=== PATIENT | male | born 1960 | race Caucasian/White ===

== ENCOUNTER 2018-12-14 08:05 | Inpatient (IN) ==
[2018-12-08 09:33] LABS: Basophils # (Auto) 0 K/mcL (0.0-0.3); Basophils % (Auto) 0.2 % (0.0-2.0); Eosinophils # (Auto) 0.5 K/mcL (0.0-0.7); Eosinophils % (Auto) 8.6 % (0.0-7.0); Granulocytes % (Auto) 66.2 % (38.0-78.0); Lymphocytes % (Auto) 17.3 % (15.5-49.0); Mean Cell Volume 94.7 fL (80.0-100.0); Mean Corpuscular HGB Conc 33.2 g/dL (31.0-36.0); Monocytes # (Auto) 0.5 K/mcL (0.1-0.9); Monocytes % (Auto) 7.7 % (1.0-12.0); Platelet Count 229 K/mcL (140-440); RBC 4.89 M/mcL (4.50-5.90); Red Cell Distribution Width 13.6 % (11.5-14.5)
[2018-12-08 09:50] LABS: Blood Urea Nitrogen 18 mg/dl (6-20)
[2018-12-08 11:24] LABS: Estimated Average Glucose(eAG) 105 mg/dL; Hemoglobin A1C 5.3 % HGB (4.0-6.0)
[2018-12-08 12:14] LABS: Appearance,Urine CLEAR; Bilirubin,Urine NEG (NEG); Color,Urine STRAW; Glucose,Urine (UA) NEGATIVE (NEG); Leukocyte Esterase,Urine NEG /uL (NEG); Protein,Urine NEG (NEG); Specific Gravity,Urine 1.008 (1.000-1.035); Urine Blood NEG mg/dL (<0.03); Urobilinogen,Urine NEG (NEG)
[~2018-12-14 08:05] MED LIST: CELECOXIB 200 MG CAPSULE PO SCH; HEPARIN 20,000 UNIT/ML VIAL IR ONE; PREGABALIN 75 MG CAPSULE PO SCH; ceFAZolin 1 GM VIAL IV SCH; oxyCODONE 10 MG TAB.ER.12H PO SCH
[2018-12-14] MEDS ORDERED: PROPOFOL 200 MG/20 ML VIAL IV ONE (09:45)
[2018-12-14] MEDS ORDERED: TRANEXAMIC ACID 1,000 MG/10 ML VIAL IV ONE (09:45)
[2018-12-14] MEDS ORDERED: PHENYLEPHRINE 10 MG/ML VIAL IV ONE (09:45)
[2018-12-14] MEDS ORDERED: ONDANSETRON 4 MG/2 ML VIAL IV ONE (09:45)
[2018-12-14] MEDS ORDERED: MIDAZOLAM 2 MG/2 ML VIAL IV ONE (09:45)
[2018-12-14] MEDS ORDERED: GLYCOPYRROLATE 0.2 MG/ML VIAL IV ONE (09:45)
[2018-12-14] MEDS ORDERED: KETAMINE 100 MG/ML ML IV ONE (09:45)
[2018-12-14] MEDS ORDERED: LIDOCAINE HCL/PF 100 MG/5 ML SYRINGE IV ONE (09:45)
[2018-12-14] MEDS ORDERED: BISACODYL 10 MG SUPP.RECT PR PRN (10:58)
[2018-12-14] MEDS ORDERED: BENZOCAINE/MENTHOL 1 LOZENGE PO PRN (10:58)
[2018-12-14] MEDS ORDERED: POLYETHYLENE GLYCOL 3350 17 GM PACKET PO PRN (10:58)
[2018-12-14] MEDS ORDERED: HYDROmorphone 2 MG/ML VIAL IV PRN (10:58)
[2018-12-14] MEDS ORDERED: FLEETS ADULT ENEMA PR PRN (10:58)
[2018-12-14] MEDS ORDERED: MAGNESIUM HYDROXIDE 30 ML ORAL.SUSP PO PRN (10:58)
[2018-12-14] MEDS ORDERED: TRANEXAMIC ACID 1,000 MG/10 ML VIAL IV SCH (10:58)
[2018-12-14] MEDS ORDERED: KETOROLAC 30 MG/ML VIAL IV PRN (10:58)
--- NOTE | 2018-12-14 10:58 | Brief Operative Note ---
Date of procedure: 12/14/18 Pre-op diagnosis: Left hip DJD Post-op diagnosis: same Procedure: Left anterior total hip arthroplasty Grafts/Implants: Yes (Depuy Actis 8 HO stem, +1.5 36 delta head, 56 cup, neutral altrx liner) Anesthesia: spinal, GLMA Findings: severe arthritis Complications: none Surgeon: José Miguel Baez Locomotive Engineer Diesel: Dickson Hussein Estimated blood loss (cc): 300 Specimens Removed/Pathology: none sent Condition: stable Disposition: PACU
[2018-12-14] MEDS ORDERED: fentaNYL 100 MCG/2 ML VIAL IV PRN (11:01)
[2018-12-14] MEDS ORDERED: MEPERIDINE 25 MG/ML SYRINGE IV PRN (11:01)
[2018-12-14] MEDS ORDERED: METHOCARBAMOL 1,000 MG/10 ML VIAL IV PRN (11:01)
[2018-12-14] MEDS ORDERED: ACETAMINOPHEN 1,000 MG/100 ML BOTTLE IV ONE (11:01)
[2018-12-14] MEDS ORDERED: IPRATROPIUM/ALBUTEROL 3 ML AMPUL.NEB NEB PRN (11:01)
[2018-12-14] MEDS ORDERED: ONDANSETRON 4 MG/2 ML VIAL IV PRN (11:01)
[2018-12-14] MEDS ORDERED: LACTATED RINGERS 1,000 ML IV SCH (11:15)
--- NOTE | 2018-12-14 12:19 | Operative Note ---
DATE OF OPERATION: 12/14/2018 PREOPERATIVE DIAGNOSIS: Left hip severe osteoarthritis. POSTOPERATIVE DIAGNOSIS: Left hip severe osteoarthritis. PROCEDURE PERFORMED: Left anterior total hip arthroplasty placing a DePuy Actis size 8 high offset femoral stem, a +1.5, 36 mm delta ceramic head ball, a 56 [place] cup with a neutral AltrX liner. SURGEON: José Miguel Baez MD HOME AGENT: Hugo Hussein PA-C ANESTHESIA: General. DRAINS: None. SPECIMENS: Femoral head, which was discarded. BLOOD LOSS: 300 mL POSTOPERATIVE CONDITION: Stable. INDICATIONS FOR SURGERY: This is a 58-year-old male who has had longstanding progressive worsening left hip pain. Radiographs showed severe miqu-bn-kgla osteoarthritis. FINDINGS AT SURGERY: As above. Post implantation showed good component position with minimal leg lengthening. PROCEDURE IN DETAIL: The patient had been seen preoperatively and informed consent was obtained after discussion of risks, benefits of surgery. Risks including, but not limited to, bleeding, possibly requiring transfusion; infection, possibly requiring implant removal and prolonged IV antibiotics; injury to nerves, blood vessels, and other surrounding structures; anesthetic risks; incomplete or no resolution of symptoms; leg length discrepancy; dislocation; fracture; DVT and pulmonary embolus risks; and the possibility of needing revision joint surgery. He understood these risks and wished to proceed. Correct operative site was marked and the patient was given spinal anesthesia and taken to the operating room and LMA general given. The patient was carefully positioned on the fracture table and the left hip and groin were carefully prepped and draped in normal sterile fashion and a timeout was performed verifying patient name, operative site, and plan. Ioban was used to cover all skin surfaces and scalpel was used for skin incisions through a standard anterior approach incision. Hemostasis was obtained with Bovie cautery. Careful blunt dissection was taken down on the tensor fascia. He did have multiple branches of the lateral femoral cutaneous nerve that were crossing the fascia. I dissected the largest branch and then had to cut the smaller branch to allow mobilization out of the surgical field. We then irrigated with IrriSept and placed a ring retractor. Tensor fascia was incised in line with the muscle fibers and then careful blunt dissection was taken medial to the muscle belly. Blunt cobra retractors were placed on the superior and inferior neck and then circumflex vessels were coagulated and cut and vastus fascia split distally. Anterior capsulectomy was performed and capsule release was taken out towards the trochanters. Corkscrew was placed in the femoral head and traction was placed on the leg. Osteotome was used under fluoro to identify our neck cut trajectory and then oscillating tip saw was used to make our femoral neck cut. The femoral head was removed and the acetabulum was exposed. Labrum was excised circumferentially as well as soft tissue from the floor. We started medializing with a reamer down to the tear drop. We then increased reamer size and angle until we had rim ream with a 55. We then irrigated with IrriSept, after a minute pulse lavage with saline. A 56 no-hole cup was opened and impacted at approximately 35 degrees of inclination and 30 degrees of anteversion. We had good press-fit. A center hole cover was placed. We used a curved osteotome to remove anterior osteophyte and then a neutral AltrX liner was carefully aligned and impacted. Traction was removed from the leg and it was externally rotated and capsule was released around the medial neck. Leg was then extended and adducted, the traction removed. Box osteotome was used to enter the canal and an awl to identify trajectory. Rongeur and rasp were used to lateralize and then we began sequentially broaching. We went up to a size 8. We had minimal calcar planing necessary. We then trialled with a standard offset neck. We reduced the hip. There was not a great deal of tension. AP pelvis was taken to verify neutral rotation and AP of the nonoperative and operative hips were overlaid. Our leg length was equal but our offset was under offset with the operative side, so we went ahead and redislocated. We opened the 8 high offset stem. We removed the trial, irrigated the femoral canal with IrriSept, after a minute copiously pulse lavaged with saline. We then impacted the stem which seated fully on the neck cut. We opened a +1.5, 36 head ball. The stem was carefully cleaned and dried and the head ball briskly impacted. We then reduced the hip, this time with better tension. Final fluoro images were brought in, taken and saved. We then irrigated with IrriSept, after a minute pulse lavaged with saline, #1 Vicryl running stitches-two of them were used to close tensor fascia. Ring retractor was removed. We irrigated with IrriSept again, after a minute pulse lavaged. Fat was tacked to fascia with Vicryl and 2-0 Monocryl for subcutaneous and jorge for skin. Xeroform and sterile dressing were applied. The patient was then awakened, extubated, and transferred to recovery in stable condition. [id number]:isela Job ID: [id number] Doc ID: [id number] José Miguel Baez MD
[2018-12-14] MEDS: 0.9 % SODIUM CHLORIDE 1,000 ML IV SCH ×3 (12:31→20:29)
[2018-12-14] MEDS: 0.9 % SODIUM CHLORIDE 10 ML SYRINGE IV SCH ×2 (12:32→20:33)
--- NOTE | 2018-12-14 12:39 | XRay Report ---
HISTORY: Postop left hip replacement FINDINGS: There is a well-positioned left total hip prosthesis. No fracture is present and there are no abnormal soft tissue calcifications around the joint. Moderate arthritis is present in the right hip with narrowing of the joint compartment along the superior border and formation of small spurs. There is also degenerative disc disease and arthritis in the lower lumbar spine. IMPRESSION: Well-positioned left hip prosthesis Interpreted and Authenticated by: Ovidio Castillo 12/14/18
[2018-12-14] MEDS: ONDANSETRON 4 MG/2 ML VIAL IV PRN (16:41)
[2018-12-14] MEDS: ceFAZolin 1 GM VIAL IV SCH (16:41)
[2018-12-14] MEDS: HYDROcodone/APAP 10/325MG TABLET PO PRN ×2 (19:53→22:45)
[2018-12-14] MEDS: ASPIRIN 325 MG ENTERIC COATED TABLET PO SCH (20:30)
[2018-12-14] MEDS: DOCUSATE SODIUM 100 MG CAPSULE PO SCH ×2 (20:32→20:39)
[2018-12-14] MEDS: SENNOSIDES 1 TABLET PO SCH ×2 (20:32→20:39)
[2018-12-14] MEDS ORDERED: SODIUM CHLORIDE NASAL 1 SPRAY BOTTLE NAS SCH (21:00)
[2018-12-14] MEDS ORDERED: ZOLPIDEM 5 MG TABLET PO PRN (21:00)
[2018-12-15] MEDS: ceFAZolin 1 GM VIAL IV SCH (02:08)
[2018-12-15] MEDS: HYDROcodone/APAP 10/325MG TABLET PO PRN ×4 (02:20→15:04)
[2018-12-15] MEDS: 0.9 % SODIUM CHLORIDE 1,000 ML IV SCH (04:56)
[2018-12-15] MEDS: 0.9 % SODIUM CHLORIDE 10 ML SYRINGE IV SCH (04:58)
[2018-12-15] MEDS ORDERED: 0.9 % SODIUM CHLORIDE 1,000 ML IV ONE (07:45)
[2018-12-15] MEDS: ONDANSETRON 4 MG/2 ML VIAL IV PRN (08:07)
--- NOTE | 2018-12-15 08:12 | Discharge Summary ---
Providers - Providers Patient information: Note initiated : 12/15/18 at 8:10 am Service Date, if different from initiated Date: [] Patient: Ovidio Godoy 58 y/o M admitted on 12/14/18 for Left Total Hip ARthroplasty . Chief Complaint: [] Discharge date: 12/15/18 Hospitalization Hospital course: Pt was admitted for a LILLIE. Pt underwent the procedure on the day of admission. Py spent one night on the floor prior to discharge for IV pain meds, IV abx, and PT. Pt will take ASA for DVT prophylaxis. Will f/u at [facility] in 2 weeks. Will call [facility] with questions or concerns. Will present to the ED for emergent problems. Discharge diagnosis: L hip OA Exam - Exam Clean and dry: Yes Weight bearing status: as tolerated Ortho Discharge - LILLIE - Patient Instructions Diet: Regular Diet Activity: activity as tolerated Total Hip Protocol: Follow activity instructions as provided by Physical Therapy. Dressing Care: May shower in 2 days - Follow Up Plan Follow Up Appointments: Dickson Hussein PA-C [Physician Identity Management Consultant] - 12/29/18 10:40 am Disposition: Home, Self-Care Prognosis: Good Rehab Potential: Good Overall status at discharge: patient is progressing back to baseline - Orders For Discharge Prescriptions: Aspirin [Ecotrin] 325 mg PO BID #60 tab.ec HYDROcodone/APAP 10/325MG [[place] 10-325Mg] 1 - 2 tab PO Q4HP PRN #75 tablet PRN Reason: Pain Level 3-6 Pending Studies Resuscitation Status Full Code Diet Regular Diet Start WedDec 14 1099 Hydrocodone Bitart/Acetaminophen ([place] 10/325mg) 0 tab PO Q4HP PRN PRN Reason: PAIN LEVEL 3-6 Last Admin: 12/15/18 04:57 Dose: 1 tab Documented by: Admin: 12/15/18 02:20 Dose: 1 tab Documented by: Admin: 12/14/18 22:45 Dose: 1 tab Documented by: Admin: 12/14/18 19:53 Dose: 1 tab Documented by: KESHA Aspirin (Ecotrin) 325 mg PO BID [facility] Last Admin: 12/14/18 20:30 Dose: 325 mg Documented by: KESHA Docusate Sodium (Colace) 100 mg PO BID [facility] Last Admin: 12/14/18 20:39 Dose: 100 mg Documented by: KESHA Ondansetron HCl (Zofran) 4 mg IV Q4HP PRN PRN Reason: Nausea And Vomiting Last Admin: 12/15/18 08:07 Dose: 4 mg Documented by: EDNATRIGIrma Admin: 12/14/18 16:41 Dose: 4 mg Documented by: MGARRMARIA L Polyethylene Glycol (Miralax) 17 gm PO DAILYP PRN PRN Reason: Constipation Last Admin: 12/14/18 20:30 Dose: 17 gm Documented by: KESHA Senna (Senokot) 2 tab PO HS [facility] Last Admin: 12/14/18 20:39 Dose: 2 tab Documented by: KESHA Sodium Chloride (Saline Flush) 10 ml IV Q8 [facility] Last Admin: 12/15/18 04:58 Dose: 10 ml Documented by: Admin: 12/14/18 20:33 Dose: Not Given Documented by: Admin: 12/14/18 12:32 Dose: Not Given Documented by: ARRMARIA L Sodium Chloride ([employer] Nasal) 1 spray [facility] Last Admin: 12/14/18 20:32 Dose: 1 spray Documented by: KESHA Zolpidem Tartrate (Ambien) 10 mg PO HSP PRN PRN Reason: Insomnia Last Admin: 12/14/18 22:46 Dose: 10 mg Documented by: KESHA Shift Summary 12/15/18 03:54 Shift Summary by Claritza Begum VSRosa, uses CPAP at [facility]. A&Ox4. Last pain rating 5/10 to L hip, receiving 10-325mg [place] with effective results. Dressing to L hip is C/D/I. Ice to L hip on/off tonight. IV to L FA is running 0.9%NS @ 125ml/hr. Will saline lock. No nausea tonight. Up to the bathroom with SBA, FWW and gait belt. Ambulated in hallway x 1 approx. 400 feet, tolerated well. Initialized on 12/15/18 03:54 - END OF NOTE
[2018-12-15] MEDS: DOCUSATE SODIUM 100 MG CAPSULE PO SCH (08:58)
[2018-12-15] MEDS: ASPIRIN 325 MG ENTERIC COATED TABLET PO SCH (08:58)
[2018-12-15] MEDS ORDERED: MULTIVIT,THER IRON,CA,FA & MIN 1 TABLET PO SCH (09:00)
[2018-12-15] MEDS ORDERED: ASCORBIC ACID 500 MG TABLET PO SCH (09:00)
[2018-12-15] MEDS ORDERED: POLYVINYL ALCOHOL OPHTH DROPS 15ML BOTTLE OU SCH (09:00)
[2018-12-15] MEDS ORDERED: POLYETHYLENE GLYCOL 3350 17 GM PACKET PO SCH (09:00)
--- NOTE | 2019-01-01 06:29 | XRay Report ---
CLINICAL INFORMATION: Left hip replacement TECHNIQUE: 0.3 minutes fluoroscopy utilized by Dr. Baez. Intraoperative spot films obtained during left hip arthroplasty. IMPRESSION: Intraoperative fluoroscopy utilized for left hip arthroplasty Interpreted and Authenticated by: Francisco Todd 01/01/19
== END 2018-12-15 15:16 | disposition home or self-care (01) | DRG 470 ==
LOC: MEDSUR 08:05
PROVIDERS: ADMIT Orthopaedic Surgery; ATTEND Orthopaedic Surgery

== ENCOUNTER 2020-06-12 10:52 | Inpatient (IN) ==
[2020-06-03 17:23] LABS: Appearance,Urine CLEAR; Bilirubin,Urine NEG (NEG); Color,Urine YELLOW; Culture Indicated,Urine NO; Glucose,Urine (UA) NEGATIVE (NEG); Ketones,Urine NEG (NEG); Leukocyte Esterase,Urine NEG /uL (NEG); Nitrate,Urine NEG (NEG); Protein,Urine NEG (NEG); Specific Gravity,Urine 1.013 (1.000-1.035); Urine Blood NEG mg/dL (<0.03); Urobilinogen,Urine NEG (NEG)
[2020-06-03 20:17] LABS: Basophils # (Auto) 0.04 K/mcL (0.00-0.30); Basophils % (Auto) 0.7 % (0.0-2.0); Eosinophils # (Auto) 0.72 K/mcL (0.00-0.70); Eosinophils % (Auto) 13.4 % (0.0-7.0); Granulocytes % (Auto) 57.6 % (38.0-78.0); Hematocrit 45.5 % (40.1-51.0); Hemoglobin 15.1 g/dL (13.7-17.5); Lymphocytes # (Auto) 1.16 K/mcL (1.50-4.80); Lymphocytes % (Auto) 21.6 % (15.5-49.0); Mean Cell Volume 95.4 fL (80.0-100.0); Mean Corpuscular HGB Conc 33.2 g/dL (31.0-36.0); Mean Platelet Volume 9.5 fL (7.4-10.4); Monocytes # (Auto) 0.36 K/mcL (0.10-0.90); Monocytes % (Auto) 6.7 % (1.0-12.0); Platelet Count 212 K/mcL (140-440); RBC 4.77 M/mcL (4.63-6.08); Red Cell Distribution Width 13.3 % (11.5-14.5); WBC 5.4 K/mcL (4.50-11.00)
[2020-06-03 20:24] LABS: Prothrombin Time 13.8 sec (11.9-14.5)
[2020-06-03 20:26] LABS: ALT/SGPT 23 U/l (0-40); AST/SGOT 26 U/l (0-37); Albumin 4.5 gm/dL (3.2-5.2); Albumin/Globulin Ratio 1.6 (1.0-2.3); Alkaline Phosphatase 69 U/L (39-117); Bilirubin,Total 0.5 mg/dL (0.0-1.0); Blood Urea Nitrogen 11 mg/dl (8-23); Calcium 9.5 mg/dl (8.6-10.4); Carbon Dioxide 24 mmol/L (22-30); Chloride 102 mmol/L (96-108); Globulin 2.8 gm/dL (2.2-3.7); Glomerular Filtration Rate 91; Glucose 93 mg/dL (70-105)
[2020-06-03 22:59] LABS: Estimated Average Glucose(eAG) 108 mg/dL; Hemoglobin A1C 5.4 % HGB (4.0-6.0)
[~2020-06-12 10:52] MED LIST changes: +0.9 % SODIUM CHLORIDE 9 ML, KETOROLAC 30 MG, ROPIVACAINE HCL/PF 49.5 ML, EPINEPHrine 0.... IJ SCH; -HEPARIN 20,000 UNIT/ML VIAL IR ONE; +IPRATROPIUM/ALBUTEROL 3 ML AMPUL.NEB NEB PRN; +SCOPOLAMINE 1 PATCH PATCH TOPICAL PRN; -ceFAZolin 1 GM VIAL IV SCH; +ceFAZolin 2 GM in DEXTROSE 5% IN WATER 50 ML IV SCH
[2020-06-12] MEDS ORDERED: LIDOCAINE HCL/PF 100 MG/5 ML SYRINGE IV ONE (13:18)
[2020-06-12] MEDS ORDERED: PROPOFOL 200 MG/20 ML VIAL IV ONE (13:18)
[2020-06-12] MEDS ORDERED: ONDANSETRON 4 MG/2 ML VIAL IV ONE (13:18)
[2020-06-12] MEDS ORDERED: KETAMINE 100 MG/ML ML IV ONE (13:18)
[2020-06-12] MEDS ORDERED: PHENYLEPHRINE 10 MG/ML VIAL IV ONE (13:18)
[2020-06-12] MEDS ORDERED: DEXAMETHASONE 10 MG/ML VIAL IV ONE (13:18)
[2020-06-12] MEDS ORDERED: GLYCOPYRROLATE 0.2 MG/ML VIAL IV ONE (13:18)
--- NOTE | 2020-06-12 14:46 | Brief Operative Note ---
Brief Operative Note Date of procedure: 06/12/20 Pre-op diagnosis: Right hip severe osteoarthritis Post-op diagnosis: same Procedure: Right anterior total hip arthroplasty Grafts/Implants: Yes (Depuy Actis 8 Hi stem, +1.5 36 delta head, 56 cup, neutral altrx liner) Anesthesia: spinal and GLMA Findings: severe arthritis Complications: none Surgeon: José Miguel Baez Web Manager: Dickson Hussein Estimated blood loss (cc): 350 Specimens Removed/Pathology: none sent Condition: stable Disposition: PACU
[2020-06-12] MEDS ORDERED: TRANEXAMIC ACID 1,000 MG/10 ML VIAL IV SCH (14:47)
[2020-06-12] MEDS ORDERED: FLEETS ADULT ENEMA PR PRN (14:47)
[2020-06-12] MEDS ORDERED: POLYETHYLENE GLYCOL 3350 17 GM PACKET PO PRN (14:47)
[2020-06-12] MEDS ORDERED: BISACODYL 10 MG SUPP.RECT PR PRN (14:47)
[2020-06-12] MEDS ORDERED: BENZOCAINE/MENTHOL 1 LOZENGE PO PRN ×2 (14:47→15:14)
[2020-06-12] MEDS ORDERED: HYDROmorphone 1 MG/ML SYRINGE IV PRN (14:47)
[2020-06-12] MEDS ORDERED: MAGNESIUM HYDROXIDE 30 ML ORAL.SUSP PO PRN (14:47)
[2020-06-12] MEDS ORDERED: ACETAMINOPHEN 325 MG TABLET PO PRN (15:09)
[2020-06-12] MEDS ORDERED: fentaNYL 100 MCG/2 ML VIAL IV PRN (15:14)
[2020-06-12] MEDS ORDERED: IPRATROPIUM/ALBUTEROL 3 ML AMPUL.NEB NEB PRN (15:14)
[2020-06-12] MEDS ORDERED: MEPERIDINE 25 MG/ML SYRINGE IV PRN (15:14)
[2020-06-12] MEDS ORDERED: METHOCARBAMOL 1,000 MG/10 ML VIAL IV PRN (15:14)
[2020-06-12] MEDS ORDERED: ONDANSETRON 4 MG/2 ML VIAL IV PRN (15:14)
[2020-06-12] MEDS ORDERED: ACETAMINOPHEN 1,000 MG/100 ML BOTTLE IV ONE (15:14)
[2020-06-12] MEDS ORDERED: LACTATED RINGERS 1,000 ML IV SCH (15:15)
--- NOTE | 2020-06-12 15:19 | XRay Report ---
CLINICAL INFORMATION: RIGHT HIP ARTHROPLASY COMPARISON: None. FINDINGS: Multiple digital images from the OR are submitted. Initial images show severe degeneration of the right hip. Final image shows right total hip prostheses anatomically aligned. No osseous abnormality IMPRESSION: Right total hip prosthesis in anatomic alignment. Interpreted and Authenticated by: Francisco Denton 06/12/20
--- NOTE | 2020-06-12 15:19 | Operative Note ---
DATE OF OPERATION: 06/12/2020 PREOPERATIVE DIAGNOSIS: Right hip severe osteoarthritis. POSTOPERATIVE DIAGNOSIS: Right hip severe osteoarthritis. PROCEDURE PERFORMED: Right anterior total hip arthroplasty placing a DePuy Actis size 8 high offset femoral stem; a +1.5, 36 mm delta ceramic head ball; a 56 [place] cup with a neutral AltrX liner. SURGEON: José Miguel Baez M.D. SIGNAL MAINTAINER HELPER: Hugo Hussein PA-C. The PA's assistance was required for the safe and efficient completion of the entire case. This provider's expertise and technical skill were required throughout the case. The PA assisted with preoperative coordination, intraoperative retraction, wound closure, dressing and splint application, as well as postoperative documentation and care coordination. ANESTHESIA: Spinal plus general. DRAINS: None. SPECIMENS: Femoral head and reamings which were discarded. BLOOD LOSS: 250 mL. COMPLICATIONS: None. POSTOPERATIVE CONDITION: Stable. INDICATIONS FOR SURGERY: This is a 60-year-old male who has had longstanding, progressive worsening, severe right hip pain. Radiographs showed severe lyqd-wv-knzz osteoarthritis. He did have a total hip on the left side done by me several years ago that he was very pleased with. FINDINGS AT SURGERY: There was severe arthritis. Post implantation showed satisfactory component position with relative equalization of leg lengths. PROCEDURE IN DETAIL: The patient had been seen preoperatively. Informed consent obtained after discussion of risks and benefits of surgery. Risks including, but not limited to, bleeding; infection; injury to nerves, blood vessels, and other surrounding structures; anesthetic risks; incomplete or no resolution of symptoms; leg length discrepancy; dislocation; fracture; DVT and pulmonary embolus risks; and the possibility of needing further revision joint surgery. The patient understood these risks and wished to proceed. Correct operative site was marked and then spinal anesthesia given. The patient was then taken to the operating room and LMA general given. The patient was carefully transferred to the fracture table and then the operative hip was carefully prepped and draped in normal sterile fashion. Timeout was performed verifying patient name, operative site, and plan. Ioban was used to cover all skin surfaces. A standard anterior approach incision was made with a scalpel through skin and subcutaneous tissue. Hemostasis was obtained with Bovie cautery. Careful blunt dissection was taken down on the tensor fascia and then this was undermined circumferentially. IrriSept was irrigated and a ring retractor placed. Tensor fascia was incised in line with muscle fibers and then careful blunt dissection taken medial to the muscle belly. Blunt cobra retractors were placed on the superior and inferior femoral neck and then circumflex vessels were coagulated and cut and vastus fascia split distally. Anterior capsulectomy was performed and then the capsule releases. Corkscrew was placed in the femoral head. Prior to placement of the corkscrew we did take x-rays for joint point. Once a corkscrew was placed we used fluoroscopy to identify our approximate neck cut trajectory and then our femoral neck was cut with oscillating tip saw. Femoral head was removed and the acetabulum exposed. Labrum was excised circumferentially as well as soft tissue from the floor. We then irrigated with IrriSept. We then began sequentially reaming until 1 mm smaller than the final implant. We then opened the acetabular component. IrriSept was irrigated, after a minute pulse lavaged with saline and then the cup was impacted using the [id number]. Joint point was used to verify satisfactory cup position. A center hole cover was placed and then the acetabular liner was carefully aligned and impacted and carefully verified to be fully seated. We then released traction. The leg was externally rotated and released capsule around the medial neck. The leg was then extended and adducted. Capsule was released out towards greater trochanter and then the proximal femur was exposed. Box osteotome was used to gain canal entry and an awl was used to identify canal trajectory. Rongeur and rasp were used to lateralize and then we began sequentially broaching up to the final size. We calcar planed down onto the broach and then the neck trial and head ball were placed. The hip was reduced. Fluoro was brought in and x-rays taken, joint point was used to verify satisfactory position. We then re-dislocated and removed the trial implants. Definitive implants were opened. We then irrigated the femoral canal with IrriSept again, after a minute pulse lavaged with saline. The final stem was impacted and seated. We then opened the head ball. The stem was carefully cleaned and dried and the head ball was impacted. We then reduced the hip with satisfactory tension. Final fluoro images were taken and saved. We irrigated the joint with IrriSept, after a minute pulse lavaged with saline again and then closed the tensor fascia with two running #1 Vicryls, one running proximal, one running distal and a ring retractor was removed. Final IrriSept irrigation was done, after a minute final pulse lavage, and then fat was tacked to fascia with Vicryl and then 2-0 Monocryl for subcutaneous and jorge for skin. Xeroform and sterile dressing were applied. The patient was then awakened, extubated, and transferred to recovery in stable condition. [id number]:vinicius Job ID: [id number] Doc ID: [id number] José Miguel Baez MD
--- NOTE | 2020-06-12 15:19 | Discharge Summary ---
Discharge Provider Provider Patient information: Note initiated : 06/12/20 at 3:18 pm Service Date, if different from initiated Date: [] Patient: Ovidio Godoy 60 y/o M admitted on 06/12/20 for Right Total Hip Arthroplasty Anterior. Chief Complaint: [] Date of admission: 06/12/20 10:52 Discharge date: 06/13/20 Primary care physician: Doug Murphy COURSE Hospital Course Hospital course: Pt discharged to home s/p elective R LILLIE Discharge diagnosis: R hip OA Time Spent with Patient Time attestation: Total time spent providing and/or coordinating discharge services: Physical Examination Narrative Exam Narrative: Pt evaluated on 06/13/20. Doping well, no c/o. Bandages c/d/i. N -distal. Exam Weight bearing status: as tolerated Discharge Instructions - LILLIE Patient Instructions Total Hip Protocol: Follow activity instructions as provided by Physical Therapy. Discharge Plan Patient/Caregiver Discharge Instructions Activity: increase activity as tolerated and resume usual activities as tolerated Diet: Regular Diet Prescriptions: New hydrocodone-acetaminophen 10-325 mg tablet 1 - 2 tab PO Q4-6HP PRN (Reason: pain) Qty: 60 RF: 0 aspirin 81 mg tablet,delayed release (DR/EC) 81 mg PO BID Qty: 60 RF: 0 Continued ascorbic acid (vitamin C) 1,000 MG tablet 1,000 mg PO DAILY RF: 0 polyvinyl alcohol 15 ML drops 15 ml OP DAILY RF: 0 gteuuasz-dle-KK-lycopen-lutein 1 EACH tablet 1 each PO DAILY RF: 0 polyethylene glycol 3350 [Miralax] 17 GM packet 17 gm PO DAILY RF: 0 zolpidem 10 MG tablet 10 mg PO HSP RF: 0 Ageless Male 1 tab PO DAILY RF: 0 hydrocortisone 28 GM ointment 1 applic Topical DAILYP PRN (Reason: ROSACEA) RF: 0 triamcinolone acetonide 1 DOSE cream 1 dose Topical DAILYP PRN (Reason: ROSACEA) RF: 0 sodium chloride 44 ML aerosol,spray 1 spray JOSÉ MIGUEL HS RF: 0 cyanocobalamin (vitamin B-12) [Vitamin B-12] 500 mcg Tablet 1,000 mcg PO QDAY RF: 0 naproxen sodium [Aleve] 220 mg Tablet 440 mg PO BID RF: 0 tadalafil 20 mg Tablet 20 mg PO DAILY RF: 0 cholecalciferol (vitamin D3) [Vitamin D3] 25 mcg (1,000 unit) Tablet 25 mcg PO QDAY RF: 0 Discontinued ferrous sulfate 325 mg (65 mg iron) Tablet 325 mg PO BIDCC RF: 0 Other Ambulatory Orders: Physical Therapy at Discharge - LILLIE (Routine) Location: None Selected Ordered By: Dickson Ramirez (ONCE) Location: None Selected Ordered By: Dickson Hussein Follow Up Plan Follow up with: Dickson Hussein PA-C [Physician Cow Tender] - 06/27/20 10:50 am Patient Disposition: Home, Self-Care Hospital Course: Pt discharged to home s/p elective LILLIE Prognosis: Good Rehab Potential: Good Overall status at discharge: patient is progressing back to baseline Discharge Orders: Discharge Order (Routine); Ordered 06/13/20 Ordered By: Dickson Hussein Pending Pending Pending: Resuscitation Status Full Code Diet Regular Diet Start WedJun 12 144 Celecoxib (Celebrex) 200 mg PO PREOP DREAD Stop: 06/12/20 17:00 Last Admin: 06/12/20 11:58 Dose: 200 mg Documented by: ALEXANDRE Cefazolin Sodium 2 gm/ (Dextrose) 50 mls @ 100 mls/hr IV PREOP DREAD Stop: 06/12/20 17:00 Last Admin: 06/12/20 13:08 Dose: 100 mls/hr Documented by: [email or web address] Oxycodone HCl (Oxycontin) 10 mg PO PREOP DREAD Stop: 06/12/20 17:00 Last Admin: 06/12/20 11:59 Dose: 10 mg Documented by: ALEXANDRE Pregabalin (Lyrica) 75 mg PO PREOP DREAD Stop: 06/12/20 17:00 Last Admin: 06/12/20 11:59 Dose: 75 mg Documented by: ALEXANDRE
[2020-06-12] MEDS: 0.9 % SODIUM CHLORIDE 1,000 ML IV SCH ×2 (15:42→22:33)
--- NOTE | 2020-06-12 16:17 | XRay Report ---
CLINICAL INFORMATION: Post-op Total Hip COMPARISON: None. FINDINGS: Right total hip prostheses is anatomically aligned. No osseous abnormality. Soft tissue swelling over the surgical site seen as expected. Older left hip prosthesis remains anatomically aligned without loosening or infection. IMPRESSION: Right total hip prostheses in anatomic alignment Interpreted and Authenticated by: Francisco Denton 06/12/20
[2020-06-12] MEDS: HYDROcodone/APAP 10/325MG TABLET PO PRN ×2 (16:52→18:40)
[2020-06-12] MEDS: ONDANSETRON 4 MG/2 ML VIAL IV PRN (19:42)
[2020-06-12] MEDS: 0.9 % SODIUM CHLORIDE 10 ML SYRINGE IV SCH (20:31)
[2020-06-12] MEDS: DOCUSATE SODIUM 100 MG CAPSULE PO SCH (20:47)
[2020-06-12] MEDS: ASPIRIN 81 MG TAB.CHEW PO SCH (20:47)
[2020-06-12] MEDS ORDERED: SENNOSIDES 1 TABLET PO SCH (21:00)
[2020-06-12] MEDS ORDERED: SODIUM CHLORIDE NASAL 1 SPRAY BOTTLE NAS SCH (21:00)
[2020-06-12] MEDS ORDERED: ZOLPIDEM 5 MG TABLET PO PRN (21:00)
[2020-06-12] MEDS: ceFAZolin 1 GM VIAL IV SCH (21:01)
[2020-06-12] MEDS: KETOROLAC 30 MG/ML VIAL IV PRN (22:34)
[2020-06-13] MEDS: HYDROcodone/APAP 10/325MG TABLET PO PRN ×3 (00:47→09:31)
[2020-06-13] MEDS: 0.9 % SODIUM CHLORIDE 10 ML SYRINGE IV SCH (04:29)
[2020-06-13] MEDS: KETOROLAC 30 MG/ML VIAL IV PRN ×2 (05:32→11:32)
[2020-06-13] MEDS: ceFAZolin 1 GM VIAL IV SCH (05:45)
[2020-06-13] MEDS ORDERED: POLYETHYLENE GLYCOL 3350 17 GM PACKET PO SCH (09:00)
[2020-06-13] MEDS ORDERED: MULTIVIT,THER IRON,CA,FA & MIN 1 TABLET PO SCH (09:00)
[2020-06-13] MEDS ORDERED: ASCORBIC ACID 500 MG TABLET PO SCH (09:00)
[2020-06-13] MEDS ORDERED: CYANOCOBALAMIN (VITAMIN B-12) 500 MCG TABLET PO SCH (09:00)
[2020-06-13] MEDS ORDERED: VITAMIN D3 1,000 UNIT TABLET PO SCH (09:00)
[2020-06-13] MEDS ORDERED: POLYVINYL ALCOHOL OPHTH DROPS 15ML BOTTLE OU SCH (09:00)
[2020-06-13] MEDS: 0.9 % SODIUM CHLORIDE 1,000 ML IV SCH (09:28)
[2020-06-13] MEDS: ONDANSETRON 4 MG/2 ML VIAL IV PRN (09:28)
[2020-06-13] MEDS: ASPIRIN 81 MG TAB.CHEW PO SCH (09:31)
[2020-06-13] MEDS: DOCUSATE SODIUM 100 MG CAPSULE PO SCH (09:31)
== END 2020-06-13 12:45 | disposition home or self-care (01) | DRG 470 ==
LOC: MEDSUR 10:52 → EDSTATUS 13:30
PROVIDERS: ADMIT Orthopaedic Surgery; ATTEND Orthopaedic Surgery